=== PATIENT | male | born 1995 | race American Indian/Alaskan Native ===

== ENCOUNTER 2020-09-17 08:33 | Emergency (ER) | payer SELFPAY ==
[2020-09-17 08:45] VITALS: BP 184/93
[2020-09-17] MEDS ORDERED: IBUPROFEN 800 MG TAB PO ONE (09:46)
[2020-09-17] MEDS ORDERED: TETANUS,DIPH,PERTUSS(ACELL) VACCINE 0.5 ML SYRINGE IM ONE (09:46)
--- NOTE | 2020-09-17 10:08 | XRay Report ---
HISTORY:thumb abrasion s/p injury from car door COMPARISON: None. TECHNIQUE: AP lateral and obliques views were obtained FINDINGS: Bones: No fracture or dislocation. Joint spaces: Maintained. Soft tissues: No significant abnormality. Additional findings: None. IMPRESSION: 1. No significant abnormality. Signer Name: Rito Galeana MD Signed: 09/17/2020 10:04 AM Workstation Name: [id number]
--- NOTE | 2020-09-17 11:02 | Emergency Department Report ---
ED Upper Extremity Inj HPI - General Chief Complaint: Extremity Injury, Upper Stated Complaint: HAND INJURY Time Seen by Provider: 09/17/20 09:35 Source: patient Mode of arrival: Ambulatory Limitations: No Limitations - History of Present Illness Initial Comments: This is a 25-year-old male nontoxic, well nourished in appearance, no acute signs of distress presents to the ED with c/o of right thumb pain 1 day. Patient stated that he jammed his finger against the trunk door [employer]. Patient denies any other injuries or trauma. Patient denies any numbness, tingling, fever, chills, nausea, vomiting, chest pain, shortness of breath, headache, stiff neck. Patient denies any joint swelling or joint redness. Patient denies decreased range of motion but has some pains. Patient denies any allergies or significant past medical history. Denies being up-to-date with tetanus MD Complaint: Injury to:: right, finger -: This morning Other Extremity Injury: Fingers: Right (Thumb) Other Injuries: none Place: outdoors Severity scale (0 -10): 8 Improves With: immobilization Worsens With: movement of extremity Context: crush Associated Symptoms: denies other symptoms. denies: weakness, numbness, neck p ain, suspects foreign body, nausea/vomiting, heard/felt popping sensat - Related Data Previous Rx's Medication Instructions Recorded Last Taken Type Prednisone [predniSONE 10 mg 10 mg PO .TAPER #1 tab.ds.pk 03/01/18 Unknown Rx (6-Day Pack, 21 Tabs)] diphenhydrAMINE [Benadryl CAP] 25 mg PO Q6HR PRN #20 capsule 03/01/18 Unknown Rx Naproxen 500 mg PO Q12H PRN #12 tablet 09/17/20 Unknown Rx Allergies Allergy/AdvReac Type Severity Reaction Status Date / Time No Known Allergies Allergy Verified 09/17/20 08:39 ED Review of Systems ROS: Stated complaint: HAND INJURY Other details as noted in HPI Comment: All other systems reviewed and negative Constitutional: denies: chills, fever Eyes: denies: eye pain, eye discharge, vision change ENT: denies: ear pain, throat pain Respiratory: denies: cough, shortness of breath, wheezing Cardiovascular: denies: chest pain, palpitations Endocrine: no symptoms reported Gastrointestinal: denies: abdominal pain, nausea, diarrhea Genitourinary: denies: urgency, dysuria Musculoskeletal: denies: back pain, joint swelling, arthralgia Skin: denies: rash, lesions Neurological: denies: headache, weakness, paresthesias Psychiatric: denies: anxiety, depression Hematological/Lymphatic: denies: easy bleeding, easy bruising ED Past Medical Hx - Past Medical History Previous Medical History?: No - Surgical History Past Surgical History?: No - Social History Smoking Status: Never Smoker - Medications Home Medications: Home Medications Medication Instructions Recorded Confirmed Last Taken Type Prednisone [predniSONE 10 mg 10 mg PO .TAPER #1 tab.ds.pk 03/01/18 Unknown Rx (6-Day Pack, 21 Tabs)] diphenhydrAMINE [Benadryl CAP] 25 mg PO Q6HR PRN #20 capsule 03/01/18 Unknown Rx Naproxen 500 mg PO Q12H PRN #12 tablet 09/17/20 Unknown Rx ED Physical Exam - General Limitations: No Limitations General appearance: alert, in no apparent distress - Head Head exam: Present: atraumatic, normocephalic - Eye Eye exam: Present: normal appearance - Neck Neck exam: Present: normal inspection, full ROM - Respiratory Respiratory exam: Absent: respiratory distress - Cardiovascular Cardiovascular Exam: Present: regular rate - Extremities Exam Extremities exam: Present: full ROM, tenderness, normal capillary refill. Absent: joint swelling - Expanded Upper Extremity Exam Right General: Present: normal inspection Shoulder Exam: Present: normal inspection, full ROM. Absent: tenderness, swelling Upper Arm exam: Present: normal inspection, full ROM. Absent: tenderness, swelling Elbow exam: Present: normal inspection, full ROM. Absent: tenderness, swelling Forearm Wrist exam: Present: normal inspection, full ROM. Absent: tenderness, swelling, abrasion, laceration, ecchymosis, deformity, crepidus, dislocation, erythema, tenderness over anatomical snuff box, pain with axial thumb loading Hand Wrist exam: Present: full ROM, tenderness, abrasion. Absent: swelling, laceration, ecchymosis, deformity, crepidus, dislocation, erythema, amputation, nail avulsion, subungual hematoma Hand L/R Back: 1 - Small 1 cm abrasion Vascular: Present: normal capillary refill. Absent: vascular compromise (Neurovascular within normal limits) - Back Exam Back exam: Present: normal inspection, full ROM - Neurological Exam Neurological exam: Present: alert, oriented X3, normal gait - Psychiatric Psychiatric exam: Present: normal affect, normal mood - Skin Skin exam: Present: warm, dry, intact, normal color. Absent: rash ED Course Vital Signs 09/17/20 08:44 Temperature 98.5 F Pulse Rate 58 L Respiratory 18 Rate Blood Pressure 184/93 O2 Sat by Pulse 98 Oximetry - Reevaluation(s) Reevaluation #1: 09/17/20 11:05 Patient is speaking in full sentences with no signs of distress noted. ED Medical Decision Making - Radiology Data [facility] [address] [place] [address] XRay Report Signed Patient: PRAKASH FUNES JR MR#: [id number] : Acct:[id number] Age/Sex: 25 / M ADM Date: 09/17/20 Loc: ED Attending Dr: Ordering Physician: SUKUMAR ARBOLEDA NP Date of Service: 09/17/20 Procedure(s): XR finger(s) 2+V RT Accession Number(s): [id number] cc: SUKUMAR ARBOLEDA NP Fluoro Time In Minutes: HISTORY:thumb abrasion s/p injury from car d oor COMPARISON: None. TECHNIQUE: AP lateral and obliques views were obtained FINDINGS: Bones: No fracture or dislocation. Joint spaces: Maintained. Soft tissues: No significant abnormality. Additional findings: None. IMPRESSION: 1. No significant abnormality. Signer Name: Rito Galeana MD Signed: 09/17/2020 10:04 AM Workstation Name: [id number] Transcribed By: WG Dictated By: Rito Galeana MD Electronically Authenticated By: Rito Galeana MD Signed Date/Time: 09/17/20 1004 DD/ 1000 TD/TT: - Medical Decision Making This is a 25-year-old male that presents with right thumb contusion with abrasion. Patient is stable and was examined by me. X-ray has been obtained and dictated by the radiologist. Patient is notified of the x-ray report with noted by the patient. Patient does have normal gait with no tenderness and no joint swelling. No ecchymosis. no joint redness or swelling. Not warm to touch. No signs of cellulites present. Patient received a tetanus booster in the ER. Patient soaked finger with Betadine and water. Sterile dressing applied. Educated on proper wound care. Patient received a metal frog splint for pain comfort to the finger. Post splint assessment: neurovasular intact; normal cap refill <2 second; normal sensation; denies decreaed sensation; normal ROM of digits.. Patient was instructed to RICE therapy. Patient received Motrin for pain. Patient is discharged with Motrin. At time of discharge, the patient does not seem toxic or ill in appearance. No acute signs of distress noted. Patient agrees to discharge treatment plan of care. No further questions noted by the patient. Critical care attestation.: If time is entered above; I have spent that time in minutes in the direct care of this critically ill patient, excluding procedure time. ED Disposition Clinical Impression: Contusion of right thumb Qualifiers: Encounter type: initial encounter Damage to nail status: without damage Qualified Code(s): S60.011A - Contusion of right thumb without damage to nail, initial encounter Disposition: - TO HOME OR SELFCARE Is pt being admited?: No Does the pt Need Aspirin: No Condition: Stable Additional Instructions: Follow-up with a orthopedic doctor in 3-5 days or if symptoms worsen and continue return to emergency room as soon as possible. No physical activity that extremity until cleared by orthopedic doctor Prescriptions: Naproxen 500 mg PO Q12H PRN #12 tablet PRN Reason: Pain , Severe (7-10) Referrals: HIEU THIBODEAUX MD [Primary Care Provider] - 3-5 Days JANETH LEY MD [Staff Physician] - 3-5 Days Forms: Work/School Release Form(ED) Time of Disposition: 11:07
== END 2020-09-17 11:38 | disposition home or self-care (01) ==
LOC: ED 08:33
DX: S60.011A Contusion of right thumb without damage to nail, initial encounter (principal); W23.0XXA Caught, crushed, jammed, or pinched between moving objects, initial encounter; Y93.89 Activity, other specified; Y92.89 Other specified places as the place of occurrence of the external cause; Y99.8 Other external cause status
CPT/HCPCS: 90471; 90715; 99283

== ENCOUNTER 2021-11-03 07:27 | Emergency (ER) | payer SELFPAY ==
[2021-11-03 07:59] VITALS: BP 128/84
--- NOTE | 2021-11-03 09:05 | Emergency Department Report ---
ED General Adult HPI - General Chief complaint: Sore Throat Stated complaint: FEEL LIKE SOMETHING IN THROAT Time Seen by Provider: 11/03/21 08:59 Source: patient Mode of arrival: Ambulatory Limitations: No Limitations - History of Present Illness Initial comments: Is a 26-year-old male who presents for sore throat x1 week. States pain with swallowing described as burning. Patient denies fevers or chills no ear pain. Patient denies history of asthma or sinusitis. Symptoms started approximately 1 week ago. There is associated postnasal drip that is clear. No wheezing no stridor no shortness of breath. No fever noted in triage today. As are exacerbated by swallowing. Symptoms are relieved by nothing tried. Patient is tolerating food and liquids with minimal pain . Speech is clear and unobstructed. - Related Data Previous Rx's Medication Instructions Recorded Last Taken Type Prednisone [predniSONE 10 mg 10 mg PO .TAPER #1 tab.ds.pk 03/01/18 Unknown Rx (6-Day Pack, 21 Tabs)] diphenhydrAMINE [Benadryl CAP] 25 mg PO Q6HR PRN #20 capsule 03/01/18 Unknown Rx Naproxen 500 mg PO Q12H PRN #12 tablet 09/17/20 Unknown Rx Amoxicillin/K Clav Tab [Augmentin 1 tab PO BID 7 Days #14 tab 11/03/21 Unknown Rx 875 mg] Ibuprofen [Motrin 800 MG tab] 800 mg PO Q8HR PRN #30 tablet 11/03/21 Unknown Rx Allergies Allergy/AdvReac Type Severity Reaction Status Date / Time No Known Allergies Allergy Verified 09/17/20 08:39 ED Review of Systems ROS: Stated complaint: FEEL LIKE SOMETHING IN THROAT Other details as noted in HPI Constitutional: denies: chills, fever Eyes: denies: eye pain, eye discharge, vision change ENT: throat pain. denies: ear pain Respiratory: denies: cough, shortness of breath, wheezing Cardiovascular: denies: chest pain, palpitations Endocrine: no symptoms reported Gastrointestinal: denies: abdominal pain, nausea, diarrhea Genitourinary: denies: urgency, dysuria Musculoskeletal: denies: back pain, joint swelling, arthralgia Skin: denies: rash, lesions Neurological: denies: headache, weakness, paresthesias Psychiatric: denies: anxiety, depression Hematological/Lymphatic: denies: easy bleeding, easy bruising ED Past Medical Hx - Past Medical History Previous Medical History?: No - Surgical History Past Surgical History?: No - Social History Smoking Status: Never Smoker - Medications Home Medications: Home Medications Medication Instructions Recorded Confirmed Last Taken Type Prednisone [predniSONE 10 mg 10 mg PO .TAPER #1 tab.ds.pk 03/01/18 Unknown Rx (6-Day Pack, 21 Tabs)] diphenhydrAMINE [Benadryl CAP] 25 mg PO Q6HR PRN #20 capsule 03/01/18 Unknown Rx Naproxen 500 mg PO Q12H PRN #12 tablet 09/17/20 Unknown Rx Amoxicillin/K Clav Tab [Augmentin 1 tab PO BID 7 Days #14 tab 11/03/21 Unknown Rx 875 mg] Ibuprofen [Motrin 800 MG tab] 800 mg PO Q8HR PRN #30 tablet 11/03/21 Unknown Rx ED Physical Exam - General Limitations: No Limitations General appearance: alert, in no apparent distress - Head Head exam: Present: normocephalic, normal inspection - Eye Eye exam: Present: PERRL, EOMI Pupils: Present: normal accommodation - ENT ENT exam: Present: mucous membranes moist, TM's normal bilaterally, normal external ear exam - Expanded ENT Exam Expanded Throat exam: Positive: tonsillar erythema, tonsillomegaly, tonsillar exudate (Exudate erythema), other (Uvula is little midline no stridor no wheezing airway is patent). Negative: R peritonsillar mass, L peritonsillar mass - Neck Neck exam: Present: tenderness, lymphadenopathy (Bilateral anterior auricle). Absent: meningismus, thyromegaly - Respiratory Respiratory exam: Present: normal lung sounds bilaterally. Absent: respiratory distress, wheezes, stridor - Cardiovascular Cardiovascular Exam: Present: regular rate, normal rhythm, normal heart sounds. Absent: systolic murmur, diastolic murmur, rubs, gallop - GI/Abdominal GI/Abdominal exam: Present: soft, normal bowel sounds - Rectal Rectal exam: Present: deferred - Extremities Exam Extremities exam: Present: normal inspection - Back Exam Back exam: Present: normal inspection, full ROM. Absent: tenderness - Neurological Exam Neurological exam: Present: alert, oriented X3 - Psychiatric Psychiatric exam: Present: normal affect, normal mood - Skin Skin exam: Present: warm, dry, intact, normal color. Absent: rash ED Course Vital Signs 11/03/21 07:57 Temperature 98.9 F Pulse Rate 66 Respiratory 18 Rate Blood Pressure 128/84 O2 Sat by Pulse 100 Oximetry ED Medical Decision Making - Medical Decision Making Speech is clear noted exudate to bilateral tonsils with moderate erythema there is no airway swelling uvula remains midline there is no muffled overstrain voice. Lung sounds are clear throughout there is no stridor or wheezing patient is tolerating intake without symptoms. Plan DC to home with prescriptions. Follow-up with ENT in 2 to 3 days if symptoms persist. Patient verbalized agreement understanding of discharge plan. Patient DC'd home in stable condition at this time. Critical care attestation.: If time is entered above; I have spent that time in minutes in the direct care of this critically ill patient, excluding procedure time. ED Disposition Clinical Impression: Pharyngitis Qualifiers: Pharyngitis/tonsillitis etiology: other specified organisms Qualified Code(s): J02.8 - Acute pharyngitis due to other specified organisms Disposition: 01 HOME / SELF CARE / HOMELESS Is pt being admited?: No Does the pt Need Aspirin: No Condition: Stable Instructions: Pharyngitis Additional Instructions: Take medications as prescribed, warm water gargles and lozenges as needed. Follow-up with ear nose and throat doctor in 2 to 3 days as directed. Return to emergency department should symptoms worsen. Prescriptions: Amoxicillin/K Clav Tab [Augmentin 875 mg] 1 tab PO BID 7 Days #14 tab Ibuprofen [Motrin 800 MG tab] 800 mg PO Q8HR PRN #30 tablet PRN Reason: pain fever Referrals: BRAON MAO MD [Referring] - 2-3 Days Forms: Work/School Release Form(ED) Time of Disposition: 09:08
[2021-11-03] MEDS ORDERED: DOPamine DRIP 800 MG/D5W 250ML PreMix IV ONE (16:10)
[2021-11-03] MEDS ORDERED: LIDOCAINE PF 100 MG/5 ML (CARDIAC SYRINGE) IV ONE (16:10)
[2021-11-03] MEDS ORDERED: SODIUM BICARB 8.4% 50 MEQ/50 ML SYRINGE IV ONE (16:10)
[2021-11-03] MEDS ORDERED: EPINEPHrine 1 MG/10 ML SYRINGE ONE (16:10)
== END 2021-11-03 19:43 | disposition home or self-care (01) ==
LOC: ED 07:27
DX: J02.9 Acute pharyngitis, unspecified (principal)
CPT/HCPCS: 99282; J0171; J1265; J2001

== ENCOUNTER 2022-01-11 08:04 | Emergency (ER) | payer SELFPAY ==
--- NOTE | 2022-01-11 08:49 | XRay Report ---
XR finger(s) 2+V RT INDICATION: PAIN/ LAC COMPARISON: None. FINDINGS/IMPRESSION: Mildly displaced transverse fracture through the fifth distal phalangeal tuft. Signer Name: Fuentes Kendrick MD Signed: 01/11/2022 8:45 AM Workstation Name: [id number]
[2022-01-11] MEDS ORDERED: LIDOCAINE-MPF (1%) 10 MG/1 ML VIAL 5 ML INFILTRATI ONE (11:34)
[2022-01-11 12:14] VITALS: BP 146/80
--- NOTE | 2022-01-11 12:15 | Emergency Department Report ---
- General Chief Complaint: Wound/Laceration Stated Complaint: RT HAND INJURY/WORK RELATED Source: patient Mode of arrival: Ambulatory Limitations: No Limitations - History of Present Illness Initial Comments: 26-year-old male presents to the ED with laceration to the right thumb. Patient states that he works at [employer]. patient states that he was pulling a door down on a box truck when he accidentally crushed his finger between the box door. Bleeding is controlled with bandage. It has obvious nail trauma damage. Patient has mild edema noted . Patient able to move extremity right difficulty. Patient states pain is a current 7 out of 10. Patient is alert and oriented x3. No acute distress noted. No ill appearance noted. Patient's tetanus status unknown. -: This morning Place: work Patient Tetanus UTD: No Context: accidental Associated Symptoms: none. denies: loss of feeling/numbness, suspect foreign body present, unable to move injured part - Related Data Previous Rx's Medication Instructions Recorded Last Taken Type Prednisone [predniSONE 10 mg 10 mg PO .TAPER #1 tab.ds.pk 03/01/18 Unknown Rx (6-Day Pack, 21 Tabs)] diphenhydrAMINE [Benadryl CAP] 25 mg PO Q6HR PRN #20 capsule 03/01/18 Unknown Rx Naproxen 500 mg PO Q12H PRN #12 tablet 09/17/20 Unknown Rx Amoxicillin/K Clav Tab [Augmentin 1 tab PO BID 7 Days #14 tab 11/03/21 Unknown Rx 875 mg] Ibuprofen [Motrin 800 MG tab] 800 mg PO Q8HR PRN #30 tablet 11/03/21 Unknown Rx Acetaminophen/Codeine [Tylenol 1 tab PO Q6H PRN 3 Days #12 tab 01/11/22 Unknown Rx /Codeine # 3 tab] cephALEXin [Keflex] 500 mg PO Q12HR 10 Days #20 cap 01/11/22 Unknown Rx Allergies Allergy/AdvReac Type Severity Reaction Status Date / Time No Known Allergies Allergy Verified 01/11/22 08:06 ED Review of Systems ROS: Stated complaint: RT HAND INJURY/WORK RELATED Other details as noted in HPI Constitutional: denies: chills, fever Eyes: denies: eye pain, eye discharge, vision change ENT: denies: ear pain, throat pain Respiratory: denies: cough, shortness of breath, wheezing Cardiovascular: denies: chest pain, palpitations Endocrine: no symptoms reported Gastrointestinal: denies: abdominal pain, nausea, diarrhea Genitourinary: denies: urgency, dysuria Musculoskeletal: joint swelling. denies: back pain, arthralgia Skin: denies: rash, lesions Neurological: denies: headache, weakness, paresthesias Psychiatric: denies: anxiety, depression Hematological/Lymphatic: denies: easy bleeding, easy bruising ED Past Medical Hx - Past Medical History Previous Medical History?: No - Surgical History Past Surgical History?: No - Social History Smoking Status: Never Smoker - Medications Home Medications: Home Medications Medication Instructions Recorded Confirmed Last Taken Type Prednisone [predniSONE 10 mg 10 mg PO .TAPER #1 tab.ds.pk 03/01/18 Unknown Rx (6-Day Pack, 21 Tabs)] diphenhydrAMINE [Benadryl CAP] 25 mg PO Q6HR PRN #20 capsule 03/01/18 Unknown Rx Naproxen 500 mg PO Q12H PRN #12 tablet 09/17/20 Unknown Rx Amoxicillin/K Clav Tab [Augmentin 1 tab PO BID 7 Days #14 tab 11/03/21 Unknown Rx 875 mg] Ibuprofen [Motrin 800 MG tab] 800 mg PO Q8HR PRN #30 tablet 11/03/21 Unknown Rx Acetaminophen/Codeine [Tylenol 1 tab PO Q6H PRN 3 Days #12 tab 01/11/22 Unknown Rx /Codeine # 3 tab] cephALEXin [Keflex] 500 mg PO Q12HR 10 Days #20 cap 01/11/22 Unknown Rx ED Physical Exam - General Limitations: No Limitations General appearance: alert, in no apparent distress - Head Head exam: Present: atraumatic, normocephalic - Eye Eye exam: Present: normal appearance - ENT ENT exam: Present: mucous membranes moist - Neck Neck exam: Present: normal inspection - Respiratory Respiratory exam: Present: normal lung sounds bilaterally. Absent: respiratory distress - Cardiovascular Cardiovascular Exam: Present: regular rate, normal rhythm. Absent: systolic murmur, diastolic murmur, rubs, gallop - GI/Abdominal GI/Abdominal exam: Present: soft, normal bowel sounds - Rectal Rectal exam: Present: deferred - Extremities Exam Extremities exam: Present: normal inspection - Back Exam Back exam: Present: normal inspection - Neurological Exam Neurological exam: Present: alert, oriented X3 - Psychiatric Psychiatric exam: Present: normal affect, normal mood - Skin Skin exam: Present: warm, dry, intact, normal color. Absent: rash ED Course Vital Signs 01/11/22 12:11 Temperature 98.4 F Pulse Rate 66 Respiratory 16 Rate Blood Pressure 146/80 [Right] O2 Sat by Pulse 98 Oximetry ED Medical Decision Making - Medical Decision Making 26-year-old male presents to the ED with laceration to the right thumb. Patient states that he works at [employer]. patient states that he was pulling a door down on a box truck when he accidentally crushed his finger between the box door. Bleeding is controlled with bandage. It has obvious nail trauma damage. Patient has mild edema noted . Patient able to move extremity right difficulty. Patient states pain is a current 7 out of 10. Patient is alert and oriented x3. No acute distress noted. No ill appearance noted. Patient's tetanus status unknown. Digital nerve block performed to the right using lidocaine 5cc . Nail bed repaired. Dressing applied with finger splint. Rechecked the patient is resting quietly , comfortable and feeling better. I discussed the results of diagnostic study, my clinical impression and the plan for further treatment with the patient. Patient agrees with plan and discharge at this present time. All question addressed. I have given the patient instruction regarding a diagnosis ,expectation ,follow- up and return precaution. I explained to the patient that emergent condition may arise and to return to the ED for new worsen and any new persisting condition. I have explained the importance of following up with the primary care physician or referral physician listed below has instructed. The patient verbalized understanding of discharge instruction. Critical care attestation.: If time is entered above; I have spent that time in minutes in the direct care of this critically ill patient, excluding procedure time. ED Disposition Clinical Impression: Fracture, finger, distal phalanx Qualifiers: Encounter type: initial encounter Finger: thumb Fracture type: open Fracture alignment: displaced Laterality: right Qualified Code(s): S62.521B - Displaced fracture of distal phalanx of right thumb, initial encounter for open fracture Disposition: HOME / SELF CARE / HOMELESS Is pt being admited?: No Does the pt Need Aspirin: No Condition: Stable Instructions: Finger Fracture, Adult, [id number], Wound Care, Adult Additional Instructions: Take medication as prescribed Return to the ED for any worsening symptoms Consult with your your job to follow-up with orthopedic for workman comp Prescriptions: cephALEXin [Keflex] 500 mg PO Q12HR 10 Days #20 cap Acetaminophen/Codeine [Tylenol /Codeine # 3 tab] 1 tab PO Q6H PRN 3 Days #12 tab PRN Reason: Pain, Mild (1-3) Referrals: [facility] [Provider Group] - 3-5 Days Forms: Work/School Release Form(ED) Time of Disposition: 12:20
[2022-01-11] MEDS ORDERED: TETANUS,DIPH,PERTUSS(ACELL) VACCINE 0.5 ML SYRINGE IM ONE (12:21)
== END 2022-01-11 12:39 | disposition home or self-care (01) ==
LOC: ED 08:04
DX: S62.521A Displaced fracture of distal phalanx of right thumb, initial encounter for closed fracture (principal); W23.0XXA Caught, crushed, jammed, or pinched between moving objects, initial encounter; Y93.89 Activity, other specified; Y92.89 Other specified places as the place of occurrence of the external cause; Y99.8 Other external cause status
CPT/HCPCS: 11760; 73140; 90471; 90715; 99283; J3490